=== PATIENT | male | born 2000 | race Caucasian/White ===

== ENCOUNTER 2020-12-09 17:08 | Emergency (ER) | payer OTHER ==
[2020-12-09 17:17] VITALS: BP 144/88
[2020-12-09] MEDS ORDERED: LIDOCAINE 1% 2 ML VIAL MC ONE (17:34)
[2020-12-09] MEDS ORDERED: cefTRIAXone 250 MG VIAL IM ONE (17:34)
[2020-12-09] MEDS ORDERED: AZITHROMYCIN 250 MG TABLET PO STA (17:35)
--- NOTE | 2020-12-09 17:37 | ED Physician Documentation ---
History of Present Illness - Stated complaint Stated Complaint: MALE - Chief complaint Chief Complaint: General - History obtained from History obtained from: Patient - Additonal information Additional information: 20-year-old man presents with concern that he has an STI. He has had dysuria progressively worsening over the past couple of days as well as abnormal discharge today. Endorses multiple sex partners, 1 of whom he is concerned has sti. denies fever, back pain abd pain nausea,hematuria, increased frequency, lesions or warts. Review of Systems Constitutional: denies: Fever, Myalgias, Fatigue : reports: Dysuria Skin: denies: Lesions Musculoskeletal: denies: Back pain PD PAST MEDICAL HISTORY - Allergies Allergies/Adverse Reactions: Allergies Allergy/AdvReac Type Severity Reaction Status Date / Time Penicillins Allergy Rash Verified 12/09/20 17:13 PD ED PE NORMAL - Vitals Vital signs reviewed: Yes - General General: Alert and oriented X 3, No acute distress, Well developed/nourished - HEENT HEENT: Atraumatic, PERRL, EOMI - Neck Neck: Supple, no meningeal sign - Cardiac Cardiac: RRR - Respiratory Respiratory: No respiratory distress, Clear bilaterally - Abdomen Abdomen: Non tender, Non distended - Male Male : Pt declined - Back Back: No CVA TTP - Derm Derm: Normal color - Extremities Extremities: No deformity - Neuro Neuro: Alert and oriented X 3 - Psych Psych: Normal mood, Normal affect Results - Vitals Vitals: Vital Signs - 24 hr 12/09/20 17:13 Temperature 36.5 C Heart Rate 87 Respiratory 16 Rate Blood Pressure 144/88 H O2 Saturation 97 Oxygen O2 Source Room air PD MEDICAL DECISION MAKING - ED course ED course: 20-year-old man presented with request for STI treatment. Educated about need for informing sexual partners to get tested. Patient declined HIV testing. Return precautions given. Plan to follow-up with primary doctor. Departure - Departure Disposition: 01 Home, Self Care Clinical Impression: STI (sexually transmitted infection) Condition: Good Instructions: ED STD Male Treated Comments: You were seen in the emergency department for treatment of sexually transmitted infection. Make sure that you ask your other partners to get tested. Return to the emergency department if you develop any new or worsening symptoms or other concerns. Follow-up with your primary doctor
[2020-12-09 17:49] LABS: BILIRUBIN,URINE NEGATIVE (NEGATIVE); GLUCOSE, URINE (UA) NEGATIVE (NEGATIVE); KETONES,URINE (UA) NEGATIVE (NEGATIVE); LEUKOCYTE ESTERASE, URINE NEGATIVE (NEGATIVE); NITRITE,URINE NEGATIVE (NEGATIVE); OCCULT BLOOD,URINE NEGATIVE (NEGATIVE); PH,URINE 5.5 PH (5.0-7.5); PROTEIN,URINE NEGATIVE (NEGATIVE); UROBILINOGEN,URINE 0.2 (NORMAL) E.U./dL (NORMAL)
[2020-12-09 17:54] LABS: CLARITY,URINE CLEAR (CLEAR)
[2020-12-09 18:10] LABS: BACTERIA,URINE Rare /HPF (None Seen); RBC,URINE 0-5 /HPF (0-5); SQUAMOUS EPITHELIAL CELL,UR FEW Squamous (<= Few); WBC,URINE 0-3 /HPF (0-3)
[2020-12-09 20:49] LABS: CHLAMYDIA TRACHOMATIS DNA NEGATIVE (NEGATIVE); NEISSERIA GONORRHOEAE DNA NEGATIVE (NEGATIVE)
== END 2020-12-09 18:03 | disposition home or self-care (01) ==
LOC: ED 17:08
DX: A64 Unspecified sexually transmitted disease (principal); Z88.0 Allergy status to penicillin
CPT/HCPCS: 81001; 87491; 87591; 96372; 99283; 99284; A9270; 87086; 87661